=== PATIENT | male | born 1975 ===

== ENCOUNTER 2017-12-15 17:43 | Observation (INO) | payer MEDICAID ==
[2017-12-15] MEDS ORDERED: Sodium Chloride 0.9% 1,000 ML IV STA (19:51)
[2017-12-15] MEDS ORDERED: Morphine 4 MG/ML VIAL IVP ONE (20:03)
--- NOTE | 2017-12-15 20:32 | ED PDOC ---
HPI: Abdomen Time Seen by Provider: 12/15/17 19:50 Chief Complaint (Nursing): Abdominal Pain Chief Complaint (Provider): Nausea, Vomiting, Diarrhea History Per: Patient History/Exam Limitations: no limitations Onset/Duration Of Symptoms: Other (x 1 month) Current Symptoms Are (Timing): Still Present Associated Symptoms: Nausea, Vomiting, Diarrhea Additional History Per: Prior Records Additional Complaint(s): Mr. Mccormick is a 42 year old, male with a history of colon cancer and chemotherapy, who presents to the emergency department complaining of worsening abdominal pain associated with nausea, vomiting and diarrhea for 1 month. Patient states he has not followed up with his PCP in the past month. Patient reports poor appetite and 30 lb weight loss. [facility] worked up with CT and labs on October 01, 2017. Patient was advised to stay for admission, but signed out as against medical advice. Patient did, however, followed up with Dr. Casas and is scheduled for colonscopy and endoscopy. Reports persistently PO intolerant. Reports multiple episodes of non-bilious, non- bloody vomiting and 3-4 episodes of bloody diarrhea. PMD: Jazzy Melissa GI: Dr. Casas Past Medical History Reviewed: Historical Data, Nursing Documentation, Vital Signs Vital Signs: Last Vital Signs Temp 98.3 F 12/15/17 19:26 Pulse 78 12/15/17 19:26 Resp 16 12/15/17 19:26 BP 147/83 12/15/17 19:26 Pulse Ox 100 12/15/17 23:36 - Medical History PMH: Malignancy (colon in remission since surgery 3 yrs ago ) - Surgical History Surgical History: Appendectomy Other surgeries: Colon Surgery - Family History Family History: States: Unknown Family Hx - Immunization History Hx Tetanus Toxoid Vaccination: (unk) Hx Influenza Vaccination: No Hx Pneumococcal Vaccination: (unk) - Home Medications Home Medications: Ambulatory Orders Medication Instructions Recorded Ibuprofen [Advil] 2 tab PO PRN PRN 11/04/16 Famotidine [Pepcid] 20 mg PO BID #20 tab 10/01/17 Ondansetron ODT [Zofran ODT] 4 mg PO Q6H PRN 10 Days #10 odt 10/01/17 - Allergies Allergies/Adverse Reactions: Allergies Allergy/AdvReac Type Severity Reaction Status Date / Time No Known Allergies Allergy Verified 10/01/17 16:51 Review of Systems ROS Statement: Except As Marked, All Systems Reviewed And Found Negative Gastrointestinal: Positive for: Nausea, Vomiting (non-bilious, non-bloody), Abdominal Pain, Diarrhea (bloody) Physical Exam - Reviewed Nursing Documentation Reviewed: Yes Vital Signs Reviewed: Yes - Physical Exam Appears: Positive for: Uncomfortable Head Exam: Positive for: ATRAUMATIC, NORMAL INSPECTION, NORMOCEPHALIC Skin: Positive for: Normal Color, Warm, Dry Eye Exam: Positive for: Normal appearance ENT: Positive for: Other (tacky mucous membrane) Neck: Positive for: Normal Cardiovascular/Chest: Positive for: Regular Rate, Rhythm Respiratory: Positive for: Normal Breath Sounds. Negative for: Respiratory Distress Gastrointestinal/Abdominal: Positive for: Tenderness (Generalized abdominal tenderness pronouncely to epigastric and RUQ) Back: Positive for: Normal Inspection Extremity: Positive for: Normal ROM. Negative for: Deformity Neurologic/Psych: Positive for: Alert, Oriented - Laboratory Results Result Diagrams: 12/15/17 20:41 12/15/17 20:41 - ECG O2 Sat by Pulse Oximetry: 100 (RA) Pulse Ox Interpretation: Normal Medical Decision Making Medical Decision Making: Time: 19:51 Plan: - CMP - Lipase - ED Urine Dipstick - CBC - Bentyl 20 mg PO STAT - Morphine 4 mg IVP - Sodium Chloride 0.9% 1,000 ml IV 1,000 mls/hr - Zofran Inj Plan: - RUQ Ultrasound Time: 20:[address] Casas. Advised to admit patient under Dr. Velasquez ( Hospitalist) and Dr. Casas as consult for intractable abdominal pain, cachexia and colon cancer. Intends to do colonoscopy. [id number] US ABD FINDINGS Liver: There is a simple hepatic cyst in the left lobe measuring 2.0 x 1.7 x 2.8 cm. No intrahepatic bile duct dilation. Gallbladder: Unremarkable. No gallstones. Normal gallbladder wall measuring 2 mm. Negative Higgins's sign. Common bile duct: Unremarkable as visualized measuring 4 mm. No stones. No dilation. Pancreas: Unremarkable as visualized. The tail is not well-visualized. Right kidney: Unremarkable measuring 9.4 cm. No stones. No solid mass. No hydronephrosis. The aorta is normal. The IVC is normal. IMPRESSION: No acute findings. Liver cyst. No followup. Scribe Attestation: Documented by Leon Perez, acting as a scribe for Terry Jha Provider Scribe Attestation: All medical record entries made by the Scribe were at my direction and personally dictated by me. I have reviewed the chart and agree that the record accurately reflects my personal performance of the history, physical exam, medical decision making, and the department course for this patient. I have also personally directed, reviewed, and agree with the discharge instructions and disposition. Disposition - Clinical Impression Clinical Impression: Intractable abdominal pain, Cachexia, Colon cancer - Patient ED Disposition Is Patient to be Admitted: Yes Discussed With DrDaly: Hubert Casas (Dr Velasquez) - Disposition Disposition Time: 21:00 Condition: FAIR
[2017-12-15] MEDS ORDERED: Morphine 4 MG/ML VIAL ONE ×2 (20:38→23:20)
[2017-12-15 20:53] LABS: BASO % 0.5 % (0.0-2.0); EOS # 0.1 K/uL (0.0-0.7); EOS % 0.8 % (0.0-4.0); LYMPH # 3.4 K/uL (1.0-4.3); LYMPH % 37.1 % (20.0-40.0); MEAN CELL VOLUME 93.6 fl (80.0-94.0); MEAN CORPUSCULAR HEMOGLOBIN 32.3 pg (27.0-31.0); MEAN CORPUSCULAR HGB CONC 34.5 g/dL (33.0-37.0); MEAN PLATELET VOLUME 8.8 fl (7.2-11.7); MONO % 11.1 % (0.0-10.0); NEUT # 4.6 K/uL (1.8-7.0); NEUT % 50.5 % (50.0-75.0); NRBC % 0.2 % (0.0-0.0); RBC 4.03 Mil/uL (4.40-5.90); RED CELL DISTRIBUTION WIDTH 13.9 % (11.5-14.5); WHITE BLOOD COUNT 9.2 K/uL (4.8-10.8)
[2017-12-15 21:19] LABS: ALB/GLOB RATIO 1.2 (1.0-2.1); ALBUMIN 3.5 g/dL (3.5-5.0); ALT/SGPT 66 U/L (21-72); AST/SGOT 63 U/L (17-59); BLOOD UREA NITROGEN 24 mg/dl (9-20); CALCIUM 8.4 mg/dL (8.4-10.2); GFR AFRICAN-AMERICAN > 60; GFR NON-AFRICAN AMERICAN > 60
[2017-12-15 21:26] LABS: LIPASE 351 U/L (23-300)
--- NOTE | 2017-12-15 22:53 | US ---
EXAM: US Abdomen Limited, Right Upper Quadrant CLINICAL HISTORY: 42 years old, male; Pain; Abdominal pain; Epigastric; Additional info: Abd pain TECHNIQUE: Real-time ultrasound of the right upper quadrant with image documentation. COMPARISON: No relevant prior studies available. FINDINGS: Liver: There is a simple hepatic cyst in the left lobe measuring 2.0 x 1.7 x 2.8 cm. No intrahepatic bile duct dilation. Gallbladder: Unremarkable. No gallstones. Normal gallbladder wall measuring 2 mm. Negative Higgins's sign. Common bile duct: Unremarkable as visualized measuring 4 mm. No stones. No dilation. Pancreas: Unremarkable as visualized. The tail is not well-visualized. Right kidney: Unremarkable measuring 9.4 cm. No stones. No solid mass. No hydronephrosis. The aorta is normal. The IVC is normal. IMPRESSION: No acute findings. Liver cyst. No followup.
[2017-12-16] MEDS ORDERED: HYDROmorphone 0.5 mg/0.5 ml ISec IVP PRN (08:00)
[2017-12-16] MEDS ORDERED: Iohexol 240 (50 ml) PO ONE (09:59)
[2017-12-16] MEDS: Lactated Ringer's 1,000 ML IV SCH ×2 (10:00→20:52)
--- NOTE | 2017-12-16 12:13 | CP.PCM.HP ---
<ScoutScott - Last Filed: 12/16/17 13:48> History of Present Illness - History of Present Illness History of Present Illness: 42 y/o M with PMHx of Colon ca 5 years ago S/p partial resection and Chemo presented to ED c/o RLQ pain, weakness, hematochezia and wt loss for the past month. States that he recently visited Dr Casas(GI) about a week ago for F/ u. Patient states hematochezia is moderate, denies melena, fever, vomiting, nausea, anorexia, diarrhea. Pain is intermittent and localized to RLQ. Present on Admission - Present on Admission Any Indicators Present on Admission: No Review of Systems - Review of Systems All systems: reviewed and no additional remarkable complaints except - Constitutional Constitutional: Weakness - Gastrointestinal Gastrointestinal: Abdominal Pain, Hematochezia Past Patient History - Past Medical History & Family History Past Medical History?: No - Past Social History Smoking Status: Current Some Days Smoker - CARDIAC Hx Cardiac Disorders: No - PULMONARY Hx Respiratory Disorders: No - NEUROLOGICAL Hx Neurological Disorder: No - RENAL Hx Chronic Kidney Disease: No - ENDOCRINE/METABOLIC Hx Endocrine Disorders: No - HEMATOLOGICAL/ONCOLOGICAL Hx Blood Disorders: Yes Hx Cancer: Yes (Colon) Hx Chemotherapy: Yes - INTEGUMENTARY Hx Dermatological Problems: No - MUSCULOSKELETAL/RHEUMATOLOGICAL Hx Falls: No - GASTROINTESTINAL Hx Gastrointestinal Disorders: Yes Hx Bowel Surgery: Yes Other/Comment: colon surgery - GENITOURINARY/GYNECOLOGICAL Other/Comment: colon ca-3 yrs ago - PSYCHIATRIC Hx Substance Use: Yes Other/Comment: marijuana - SURGICAL HISTORY Hx Surgeries: Yes Hx Appendectomy: Yes Other/Comment: Hemicolectomy/Colon Ca - ANESTHESIA Hx Anesthesia: Yes Hx Anesthesia Reactions: No Has any member of the family had a problem w/ anesthesia?: No Meds Allergies/Adverse Reactions: Allergies Allergy/AdvReac Type Severity Reaction Status Date / Time No Known Allergies Allergy Verified 10/01/17 16:51 Physical Exam - Constitutional Appears: Non-toxic - Head Exam Head Exam: NORMAL INSPECTION - Eye Exam Eye Exam: EOMI, PERRL - ENT Exam ENT Exam: Mucous Membranes Moist - Respiratory Exam Respiratory Exam: Clear to Auscultation Bilateral, NORMAL BREATHING PATTERN. absent: Decreased Breath Sounds - Cardiovascular Exam Cardiovascular Exam: REGULAR RHYTHM, +S1, +S2. absent: Gallop - GI/Abdominal Exam GI & Abdominal Exam: Normal Bowel Sounds, Soft, Tenderness (RLQ). absent: Distended, Guarding, Rebound - Extremities Exam Extremities exam: Positive for: full ROM. Negative for: calf tenderness - Neurological Exam Neurological exam: Alert, Normal Gait, Oriented x3 - Skin Skin Exam: Normal Color, Warm Results - Vital Signs Recent Vital Signs: Last Vital Signs Temp 97.6 F 12/16/17 08:40 Pulse 87 12/16/17 08:40 Resp 20 12/16/17 08:40 BP 121/70 12/16/17 08:40 Pulse Ox 99 12/16/17 08:40 - Labs Result Diagrams: 12/15/17 20:41 12/15/17 20:41 Labs: Laboratory Results - last 24 hr 12/15/17 12/15/17 12/16/17 20:41 20:41 10:57 WBC 9.2 RBC 4.03 L Hgb 13.0 Hct 37.7 MCV 93.6 MCH 32.3 H MCHC 34.5 RDW 13.9 Plt Count 178 MPV 8.8 Neut % (Auto) 50.5 Lymph % (Auto) 37.1 [place] % (Auto) 11.1 H Eos % (Auto) 0.8 Baso % (Auto) 0.5 Neut # (Auto) 4.6 Lymph # (Auto) 3.4 [place] # (Auto) 1.0 H Eos # (Auto) 0.1 Baso # (Auto) 0.0 Sodium 139 Potassium 3.5 L Chloride 104 Carbon Dioxide 23 Anion Gap 16 BUN 24 H Creatinine 0.8 Est GFR ( Amer) > 60 Est GFR (Non-Af Amer) > 60 Random Glucose 79 Calcium 8.4 Total Bilirubin 0.4 AST 63 H ALT 66 Alkaline Phosphatase 60 Total Protein 6.4 Albumin 3.5 Globulin 2.9 Albumin/Globulin Ratio 1.2 Lipase 351 H Carcinoembryonic Ag 1.1 Assessment & Plan - Assessment and Plan (Free Text) Assessment: 42 y/o with Hx of colon ca admitted for abd pain Abd pain Acute Unknown Hx of colon ca wt loss and hematochezia for 1 month abd US at ED unremarkable GI consult appreciated CT abd and pelvis ordered F/U CEA and AFP. NPO for now <Rome Velasquez - Last Filed: 12/19/17 11:57> Results - Vital Signs Recent Vital Signs: Last Vital Signs Temp 98.9 F 12/19/17 09:53 Pulse 87 12/19/17 09:53 Resp 20 12/19/17 09:53 BP 117/81 12/19/17 09:53 Pulse Ox 98 12/19/17 09:53 - Labs Result Diagrams: 12/17/17 05:00 12/17/17 05:00 Assessment & Plan (1) Intractable abdominal pain Status: Acute (2) Cachexia Status: Acute (3) Gastritis Status: Acute (4) History of colon cancer Status: Acute - Assessment and Plan (Free Text) Plan: I was present during evaluation and discussed with DR Butterfield re plans of care and mgt. Rome Velasquez M.D.
[2017-12-16] MEDS ORDERED: Iohexol 300 100 ML IJ ONE (13:33)
[2017-12-16] MEDS ORDERED: Sodium Chloride 0.9% 100 ML ONE (13:33)
--- NOTE | 2017-12-16 14:14 | CT ---
PROCEDURE: CT Abdomen and Pelvis with contrast HISTORY: Intractable abdominal pain COMPARISON: CT scan of the abdomen pelvis dated 12/05/2008. TECHNIQUE: Contrast dose: 95 mL Omnipaque 300 Radiation dose: Total exam DLP = 269.9 mGy-cm. This CT exam was performed using one or more of the following dose reduction techniques: Automated exposure control, adjustment of the mA and/or kV according to patient size, and/or use of iterative reconstruction technique. FINDINGS: LOWER THORAX: Unremarkable. LIVER: Mild hepatic steatosis. Multiple hepatic cysts, the largest is bilobed in the inferior left hepatic lobe and spans 3.5 x 2.8 cm. These have increased in size. Additional too small to characterize hypoattenuating foci in both hepatic lobes. For example, 4-5 mm hypoattenuating structure in the left hepatic lobe (series 3, image 35); adjacent 4 mm and 8 mm hypoattenuating structures in the subcapsular left hepatic lobe (series 3, image 40); 4 mm hypoattenuating structure in the right hepatic lobe (series 3, image 37); 6 mm hypoattenuating structure in the inferior right hepatic lobe (series 3, image 55). GALLBLADDER AND BILE DUCTS: Unremarkable. PANCREAS: Unremarkable. No gross lesion or ductal dilatation. SPLEEN: Unremarkable. ADRENALS: Unremarkable. No mass. KIDNEYS AND URETERS: Unremarkable. No hydronephrosis. No solid mass. VASCULATURE: Unremarkable. No aortic aneurysm. BOWEL: Prior low anterior resection. No obstruction. No gross mural thickening. APPENDIX: Prior appendectomy. PERITONEUM: Small fat containing supraumbilical ventral abdominal wall hernias. No free fluid. No free air. LYMPH NODES: Unremarkable. No enlarged lymph nodes. BLADDER: Unremarkable. REPRODUCTIVE: Unremarkable. BONES: No acute fracture. OTHER FINDINGS: None. IMPRESSION: Interval enlargement of hepatic cysts. Additional too small to characterize hypoattenuating foci in the liver as described above. Additional findings as above.
[2017-12-16] MEDS ORDERED: Peg-Electrolyte Oral Soln 4L (Golytely) PO ONE ×2 (16:13→17:03)
--- NOTE | 2017-12-16 23:23 | CP.PCM.CON ---
History of Present Illness - History of Present Illness History of Present Illness: 42 yo male with h/o colon ca about 5 years ago and s/p resection and chemo, coming for rectal bleeding and weight loo for about one month. Had CEA level done as outpatient and the level was low. Review of Systems - Constitutional Constitutional: absent: Chills - EENT Eyes: absent: Blurred Vision Ears: absent: Ear Discharge Nose/Mouth/Throat: absent: Nasal Congestion - Cardiovascular Cardiovascular: absent: Chest Pain - Respiratory Respiratory: absent: Dyspnea - Gastrointestinal Gastrointestinal: As Per HPI Past Patient History - Past Medical History & Family History Past Medical History?: No - Past Social History Smoking Status: Current Some Days Smoker - CARDIAC Hx Cardiac Disorders: No - PULMONARY Hx Respiratory Disorders: No - NEUROLOGICAL Hx Neurological Disorder: No - RENAL Hx Chronic Kidney Disease: No - ENDOCRINE/METABOLIC Hx Endocrine Disorders: No - HEMATOLOGICAL/ONCOLOGICAL Hx Blood Disorders: Yes Hx Cancer: Yes (Colon) Hx Chemotherapy: Yes - INTEGUMENTARY Hx Dermatological Problems: No - MUSCULOSKELETAL/RHEUMATOLOGICAL Hx Falls: No - GASTROINTESTINAL Hx Gastrointestinal Disorders: Yes Hx Bowel Surgery: Yes Other/Comment: colon surgery - GENITOURINARY/GYNECOLOGICAL Other/Comment: colon ca-3 yrs ago - PSYCHIATRIC Hx Substance Use: Yes Other/Comment: marijuana - SURGICAL HISTORY Hx Surgeries: Yes Hx Appendectomy: Yes Other/Comment: Hemicolectomy/Colon Ca - ANESTHESIA Hx Anesthesia: Yes Hx Anesthesia Reactions: No Has any member of the family had a problem w/ anesthesia?: No Meds Allergies/Adverse Reactions: Allergies Allergy/AdvReac Type Severity Reaction Status Date / Time No Known Allergies Allergy Verified 10/01/17 16:51 - Medications Medications: Current Medications Dicyclomine HCl (Bentyl) 10 mg PO TID [facility] Last Admin: 12/16/17 18:37 Dose: 10 mg Enoxaparin Sodium (Lovenox) 40 mg SC DAILY [facility] PRN Reason: Protocol Hydromorphone HCl (Dilaudid) 1 mg IVP Q3 PRN PRN Reason: Pain, moderate (4-7) Last Admin: 12/16/17 20:48 Dose: 1 mg Lactated Ringer's (Lactated Ringer's) 1,000 mls @ 100 mls/hr IV .Q10H [facility] Last Admin: 12/16/17 20:52 Dose: 100 mls/hr Ondansetron HCl (Zofran Inj) 12 mg IVP Q6 PRN PRN Reason: Nausea/Vomiting Last Admin: 12/16/17 15:55 Dose: 12 mg Pantoprazole Sodium (Protonix Inj) 40 mg IVP DAILY [facility] Last Admin: 12/16/17 02:59 Dose: 40 mg Physical Exam - Constitutional Appears: No Acute Distress - Head Exam Head Exam: ATRAUMATIC - Eye Exam Eye Exam: Normal appearance Pupil Exam: PERRL - ENT Exam ENT Exam: Mucous Membranes Moist - Neck Exam Neck exam: Positive for: Normal Inspection - Respiratory Exam Respiratory Exam: Clear to Auscultation Bilateral - Cardiovascular Exam Cardiovascular Exam: REGULAR RHYTHM, +S1 - GI/Abdominal Exam GI & Abdominal Exam: Distended, Soft Results - Vital Signs Recent Vital Signs: Last Vital Signs Temp 98.3 F 12/16/17 16:32 Pulse 63 12/16/17 16:32 Resp 19 12/16/17 16:32 BP 151/98 H 12/16/17 16:32 Pulse Ox 96 12/16/17 16:32 - Labs Result Diagrams: 12/15/17 20:41 12/15/17 20:41 Labs: Laboratory Results - last 24 hr 12/16/17 12/16/17 10:57 10:57 Alpha Fetoprotein 2.5 Carcinoembryonic Ag 1.1 - Imaging and Cardiology US - abdomen Status: Report reviewed by me CT scan - abdomen Status: Report reviewed by me Assessment & Plan (1) Cachexia Assessment and Plan: Cachexia, abdominal pain and rectal bleeding in individual with h/o colon cancer. CT, sono, and CEA essentially negative. Colonoscopy Wednesday to r/o colitis or cancer Status: Acute
[2017-12-17] MEDS: Lactated Ringer's 1,000 ML IV SCH ×2 (06:00→20:40)
[2017-12-17 06:45] LABS: BASO % 0.5 % (0.0-2.0); EOS # 0.1 K/uL (0.0-0.7); EOS % 1.9 % (0.0-4.0); HEMOGLOBIN 13.1 g/dL (12.0-18.0); LYMPH # 2.2 K/uL (1.0-4.3); LYMPH % 37.3 % (20.0-40.0); MEAN CELL VOLUME 94.3 fl (80.0-94.0); MEAN CORPUSCULAR HEMOGLOBIN 32.9 pg (27.0-31.0); MEAN CORPUSCULAR HGB CONC 34.8 g/dL (33.0-37.0); MEAN PLATELET VOLUME 8.8 fl (7.2-11.7); MONO # 0.7 K/uL (0.0-0.8); MONO % 12.3 % (0.0-10.0); NEUT # 2.9 K/uL (1.8-7.0); NRBC % 0.1 % (0.0-0.0); RBC 3.99 Mil/uL (4.40-5.90); RED CELL DISTRIBUTION WIDTH 14.2 % (11.5-14.5)
[2017-12-17 06:57] LABS: ALB/GLOB RATIO 1.1 (1.0-2.1); ALBUMIN 3.3 g/dL (3.5-5.0); ALT/SGPT 56 U/L (21-72); AST/SGOT 51 U/L (17-59); BLOOD UREA NITROGEN 12 mg/dl (9-20); CALCIUM 8.9 mg/dL (8.4-10.2); GFR AFRICAN-AMERICAN > 60; GFR NON-AFRICAN AMERICAN > 60
[2017-12-17 07:16] LABS: PROTHROMBIN TIME 10.5 Seconds (9.8-13.1)
[2017-12-17 07:17] LABS: PARTIAL THROMBOPLASTIN TIME 25.7 Seconds (25.6-37.1)
--- NOTE | 2017-12-17 10:30 | CP.PCM.CON ---
History of Present Illness - History of Present Illness History of Present Illness: General Surgery Consult Note - Dr. House 42M seen and examined at bedside by Dr. House and surgery team after consultation for intermittent RLQ abdominal pain with N/V x 1 month. Pt states the pain comes and goes and is very tender to touch. He states it began in the right lower abdomen and now feels it radiating around to his back. Admits to bright red blood in his stools and intermittent diarrhea. Denies melena. Admits to intermittent episodes of nausea and non-bloody vomiting. Denies loss of appetite but is hesitant to eat or drink much due to N/V. Admits to taking Motrin as needed for pain but does not take it daily. States he has been unable to work for the last 2 weeks as pain, N/V are becoming more constant. PMHx: colon CA, GERD Meds: Omeprazole PSHx: left fawad-colectomy (2011), appendectomy (2002) All: NKDA Soc: social EtOH (1 beer/week); 5-6 cigs/day; denies drug use FamHx: hx of CA in family Review of Systems - Review of Systems All systems: reviewed and no additional remarkable complaints except (per HPI) Past Patient History - Past Medical History & Family History Past Medical History?: No - Past Social History Smoking Status: Current Some Days Smoker - CARDIAC Hx Cardiac Disorders: No - PULMONARY Hx Respiratory Disorders: No - NEUROLOGICAL Hx Neurological Disorder: No - RENAL Hx Chronic Kidney Disease: No - ENDOCRINE/METABOLIC Hx Endocrine Disorders: No - HEMATOLOGICAL/ONCOLOGICAL Hx Blood Disorders: Yes Hx Cancer: Yes (Colon) Hx Chemotherapy: Yes - INTEGUMENTARY Hx Dermatological Problems: No - MUSCULOSKELETAL/RHEUMATOLOGICAL Hx Falls: No - GASTROINTESTINAL Hx Gastrointestinal Disorders: Yes Hx Bowel Surgery: Yes Other/Comment: colon surgery - GENITOURINARY/GYNECOLOGICAL Other/Comment: colon ca-3 yrs ago - PSYCHIATRIC Hx Substance Use: Yes Other/Comment: marijuana - SURGICAL HISTORY Hx Surgeries: Yes Hx Appendectomy: Yes Other/Comment: Hemicolectomy/Colon Ca - ANESTHESIA Hx Anesthesia: Yes Hx Anesthesia Reactions: No Has any member of the family had a problem w/ anesthesia?: No Meds Allergies/Adverse Reactions: Allergies Allergy/AdvReac Type Severity Reaction Status Date / Time No Known Allergies Allergy Verified 10/01/17 16:51 - Medications Medications: Current Medications Dicyclomine HCl (Bentyl) 10 mg PO TID [facility] Last Admin: 12/17/17 08:24 Dose: Not Given Enoxaparin Sodium (Lovenox) 40 mg SC DAILY [facility] PRN Reason: Protocol Hydromorphone HCl (Dilaudid) 1 mg IVP Q3 PRN PRN Reason: Pain, moderate (4-7) Last Admin: 12/17/17 08:20 Dose: 1 mg Lactated Ringer's (Lactated Ringer's) 1,000 mls @ 100 mls/hr IV .Q10H [facility] Last Admin: 12/17/17 06:00 Dose: Not Given Ondansetron HCl (Zofran Inj) 12 mg IVP Q6 PRN PRN Reason: Nausea/Vomiting Last Admin: 12/16/17 15:55 Dose: 12 mg Pantoprazole Sodium (Protonix Inj) 40 mg IVP DAILY [facility] Last Admin: 12/17/17 08:26 Dose: 40 mg Physical Exam - Constitutional Appears: Well, Non-toxic, No Acute Distress - Head Exam Head Exam: ATRAUMATIC, NORMAL INSPECTION - Eye Exam Eye Exam: Normal appearance - Respiratory Exam Respiratory Exam: NORMAL BREATHING PATTERN. absent: Respiratory Distress - GI/Abdominal Exam GI & Abdominal Exam: Tenderness. absent: Distended, Mass, Rebound Additional comments: mild-moderate RLQ tenderness to palpation - Extremities Exam Extremities exam: Positive for: normal inspection. Negative for: pedal edema - Neurological Exam Neurological exam: Alert, Oriented x3 - Psychiatric Exam Psychiatric exam: Normal Affect, Normal Mood - Skin Skin Exam: Dry, Intact, Normal Color Results - Vital Signs Recent Vital Signs: Last Vital Signs Temp 98.4 F 12/17/17 08:05 Pulse 65 12/17/17 08:05 Resp 18 12/17/17 08:05 BP 135/84 12/17/17 08:05 Pulse Ox 99 12/17/17 08:05 - Labs Result Diagrams: 12/17/17 05:00 12/17/17 05:00 Labs: Laboratory Results - last 24 hr 12/16/17 12/16/17 12/17/17 10:57 10:57 05:00 WBC 6.0 RBC 3.99 L Hgb 13.1 Hct 37.7 MCV 94.3 H MCH 32.9 H MCHC 34.8 RDW 14.2 Plt Count 179 MPV 8.8 Neut % (Auto) 48.0 L Lymph % (Auto) 37.3 [place] % (Auto) 12.3 H Eos % (Auto) 1.9 Baso % (Auto) 0.5 Neut # (Auto) 2.9 Lymph # (Auto) 2.2 [place] # (Auto) 0.7 Eos # (Auto) 0.1 Baso # (Auto) 0.0 PT INR APTT Sodium Potassium Chloride Carbon Dioxide Anion Gap BUN Creatinine Est GFR ( Amer) Est GFR (Non-Af Amer) Random Glucose Calcium Total Bilirubin AST ALT Alkaline Phosphatase Total Protein Albumin Globulin Albumin/Globulin Ratio Alpha Fetoprotein 2.5 Carcinoembryonic Ag 1.1 12/17/17 12/17/17 05:00 05:30 WBC RBC Hgb Hct MCV MCH MCHC RDW Plt Count MPV Neut % (Auto) Lymph % (Auto) [place] % (Auto) Eos % (Auto) Baso % (Auto) Neut # (Auto) Lymph # (Auto) [place] # (Auto) Eos # (Auto) Baso # (Auto) PT 10.5 INR 1.0 APTT 25.7 Sodium 142 Potassium 4.3 Chloride 102 Carbon Dioxide 31 H Anion Gap 13 BUN 12 Creatinine 1.0 Est GFR ( Amer) > 60 Est GFR (Non-Af Amer) > 60 Random Glucose 89 Calcium 8.9 Total Bilirubin 0.9 AST 51 ALT 56 Alkaline Phosphatase 66 Total Protein 6.3 Albumin 3.3 L Globulin 3.0 Albumin/Globulin Ratio 1.1 Alpha Fetoprotein Carcinoembryonic Ag Assessment & Plan - Assessment and Plan (Free Text) Assessment: 42 y/o male with RLQ abdominal pain Plan: -seen at bedside with attending Dr. House -continue pain mgt per primary team -f/u colonoscopy -monitor CBC, vitals
[2017-12-17] MEDS ORDERED: Lactated Ringer's 1,000 ML IV ONE (13:11)
[2017-12-17] MEDS ORDERED: Midazolam 2 MG/2 ML VIAL ONE (13:38)
[2017-12-17] MEDS ORDERED: Propofol 10 mg/ml Inj (20 ML) ONE (13:39)
[2017-12-17] MEDS ORDERED: Lidocaine PF 2% (5 ml) Inj (For Cardiac Arrhy) IV ONE (13:39)
--- NOTE | 2017-12-17 16:15 | CP.PCM.PN ---
Subjective - Date & Time of Evaluation Date of Evaluation: 12/17/17 Time of Evaluation: 16:13 - Subjective Subjective: Was c/o ongoing rectal bleeding through this morning, but no blood or significant pathology on colonscopy. Objective - Vital Signs/Intake and Output Vital Signs (last 24 hours): Temp Pulse Resp BP Pulse Ox 96.6 F L 71 10 L 102/62 100 12/17/17 14:00 12/17/17 14:14 12/17/17 14:14 12/17/17 14:14 12/17/17 14:14 Intake and Output: 12/17/17 12/17/17 06:59 18:59 Intake Total 250 Balance 250 - Medications Medications: Current Medications Dicyclomine HCl (Bentyl) 10 mg PO TID [facility] Last Admin: 12/17/17 12:49 Dose: Not Given Enoxaparin Sodium (Lovenox) 40 mg SC DAILY [facility] PRN Reason: Protocol Hydromorphone HCl (Dilaudid) 1 mg IVP Q3 PRN PRN Reason: Pain, moderate (4-7) Last Admin: 12/17/17 15:26 Dose: 1 mg Lactated Ringer's (Lactated Ringer's) 1,000 mls @ 100 mls/hr IV .Q10H [facility] Last Admin: 12/17/17 06:00 Dose: Not Given Ondansetron HCl (Zofran Inj) 12 mg IVP Q6 PRN PRN Reason: Nausea/Vomiting Last Admin: 12/17/17 15:28 Dose: 12 mg Pantoprazole Sodium (Protonix Inj) 40 mg IVP DAILY [facility] Last Admin: 12/17/17 08:26 Dose: 40 mg - Labs Labs: 12/17/17 05:00 12/17/17 05:00 PT 10.5 Seconds (9.8-13.1) 12/17/17 05:30 INR 1.0 (0.9-1.2) 12/17/17 05:30 APTT 25.7 Seconds (25.6-37.1) 12/17/17 05:30 - Head Exam Head Exam: ATRAUMATIC - Eye Exam Eye Exam: Normal appearance - ENT Exam ENT Exam: Normal Exam - Neck Exam Neck Exam: Full ROM - Respiratory Exam Respiratory Exam: Clear to Ausculation Bilateral - Cardiovascular Exam Cardiovascular Exam: REGULAR RHYTHM - GI/Abdominal Exam GI & Abdominal Exam: Soft, Normal Bowel Sounds Assessment and Plan (1) Cachexia Assessment & Plan: Colonscopy essentially negative. Consider mental health assessment. Diet advanced. Status: Acute
[2017-12-17] MEDS: Enoxaparin 40 mg Syringe SC SCH (17:26)
[2017-12-18] MEDS: Lactated Ringer's 1,000 ML IV SCH ×3 (02:10→22:00)
--- NOTE | 2017-12-18 07:43 | CP.PCM.PN ---
Subjective - Date & Time of Evaluation Date of Evaluation: 12/18/17 Time of Evaluation: 07:40 - Subjective Subjective: General Surgery: Dr House Pt S&E. States he is "not doing well". Complains of continued lower GI bleeding, however HgB stable and colonoscopy negative. States he cannot tolerate food. Complains of pain in abdomen, flanks, lower back, and into his legs. Pt states he is going for "more testing today" but he is not sure for what. Explained to pt surgically we have nothing to offer at this time as we are unclear on nature of his pain, but we will continue to follow. Objective - Vital Signs/Intake and Output Vital Signs (last 24 hours): Temp Pulse Resp BP Pulse Ox 98.4 F 83 18 147/97 H 99 12/18/17 00:00 12/18/17 00:00 12/18/17 00:00 12/18/17 00:00 12/18/17 00:00 - Medications Medications: Current Medications Dicyclomine HCl (Bentyl) 10 mg PO TID [facility] Last Admin: 12/17/17 20:24 Dose: 10 mg Enoxaparin Sodium (Lovenox) 40 mg SC DAILY [facility] PRN Reason: Protocol Last Admin: 12/17/17 17:26 Dose: 40 mg Hydromorphone HCl (Dilaudid) 1 mg IVP Q3 PRN PRN Reason: Pain, moderate (4-7) Last Admin: 12/18/17 00:10 Dose: 1 mg Lactated Ringer's (Lactated Ringer's) 1,000 mls @ 100 mls/hr IV .Q10H [facility] Last Admin: 12/18/17 02:10 Dose: Not Given Ondansetron HCl (Zofran Inj) 12 mg IVP Q6 PRN PRN Reason: Nausea/Vomiting Last Admin: 12/17/17 15:28 Dose: 12 mg Pantoprazole Sodium (Protonix Inj) 40 mg IVP DAILY [facility] Last Admin: 12/17/17 08:26 Dose: 40 mg - Labs Labs: 12/17/17 05:00 12/17/17 05:00 PT 10.5 Seconds (9.8-13.1) 12/17/17 05:30 INR 1.0 (0.9-1.2) 12/17/17 05:30 APTT 25.7 Seconds (25.6-37.1) 12/17/17 05:30 - Constitutional Appears: Non-toxic, No Acute Distress - Head Exam Head Exam: NORMAL INSPECTION - Respiratory Exam Respiratory Exam: absent: Accessory Muscle Use, Respiratory Distress - Cardiovascular Exam Cardiovascular Exam: REGULAR RHYTHM. absent: Tachycardia - GI/Abdominal Exam GI & Abdominal Exam: Soft, Tenderness (epigastric ). absent: Distended, Firm, Guarding, Rigid, Hernia, Mass, Rebound - Neurological Exam Neurological Exam: Alert, Awake, Oriented x3 - Psychiatric Exam Psychiatric exam: Normal Affect, Normal Mood - Skin Skin Exam: Normal Color, Warm Assessment and Plan - Assessment and Plan (Free Text) Assessment: 42M with undifferentiated abdominal pain, now with back pain as well, and reports of lower GI bleeding w/ negative colonoscopy Plan: agree with GI assessment no evidence of recurrence, obstruction, or metastasis on CT scan will f/u on additional studies ordered by primary will cont to follow d/w Dr Harsh Parra, PGY3
[2017-12-18] MEDS: Enoxaparin 40 mg Syringe SC SCH (09:07)
--- NOTE | 2017-12-18 16:04 | CP.PCM.PN ---
Subjective - Date & Time of Evaluation Date of Evaluation: 12/17/17 Time of Evaluation: 17:00 - Subjective Subjective: Patient is very anxious Noted no significant finding on colonoscopy. Still with vague tenderness on the right side of the abdomen. Has normal bm, Tolerates soft diet. Has no fever. Objective - Vital Signs/Intake and Output Vital Signs (last 24 hours): Temp Pulse Resp BP Pulse Ox 97.8 F 82 19 150/97 H 100 12/18/17 08:00 12/18/17 08:00 12/18/17 08:00 12/18/17 08:00 12/18/17 08:00 - Medications Medications: Current Medications Dicyclomine HCl (Bentyl) 10 mg PO TID [facility] Last Admin: 12/18/17 12:09 Dose: 10 mg Enoxaparin Sodium (Lovenox) 40 mg SC DAILY [facility] PRN Reason: Protocol Last Admin: 12/18/17 09:07 Dose: 40 mg Hydromorphone HCl (Dilaudid) 1 mg IVP Q3 PRN PRN Reason: Pain, moderate (4-7) Last Admin: 12/18/17 12:17 Dose: 1 mg Lactated Ringer's (Lactated Ringer's) 1,000 mls @ 100 mls/hr IV .Q10H [facility] Last Admin: 12/18/17 12:10 Dose: 100 mls/hr Ondansetron HCl (Zofran Inj) 12 mg IVP Q6 PRN PRN Reason: Nausea/Vomiting Last Admin: 12/17/17 15:28 Dose: 12 mg Pantoprazole Sodium (Protonix Ec Tab) 40 mg PO DAILY [facility] - Labs Labs: 12/17/17 05:00 12/17/17 05:00 PT 10.5 Seconds (9.8-13.1) 12/17/17 05:30 INR 1.0 (0.9-1.2) 12/17/17 05:30 APTT 25.7 Seconds (25.6-37.1) 12/17/17 05:30 - Head Exam Head Exam: NORMAL INSPECTION - Eye Exam Eye Exam: Normal appearance - ENT Exam ENT Exam: Mucous Membranes Moist - Respiratory Exam Respiratory Exam: Clear to Ausculation Bilateral - Cardiovascular Exam Cardiovascular Exam: REGULAR RHYTHM - GI/Abdominal Exam GI & Abdominal Exam: Tenderness, Normal Bowel Sounds Additional comments: slight tenderness on the right upper quadrant - Neurological Exam Neurological Exam: Awake, Oriented x3 Assessment and Plan (1) Cachexia Status: Acute (2) Intractable abdominal pain Status: Acute (3) Gastritis Status: Acute - Assessment and Plan (Free Text) Plan: Cont meds Cont tx advance diet pain meds antacid.
--- NOTE | 2017-12-18 16:05 | CP.PCM.PN ---
Subjective - Date & Time of Evaluation Date of Evaluation: 12/18/17 Time of Evaluation: 16:04 - Subjective Subjective: Patient was able to take his lunch today Still with minimal tenderness on the right lower quadrant area. Has no fever He was told about the findings on colonoscopy. Less anxious and depressed. Objective - Vital Signs/Intake and Output Vital Signs (last 24 hours): Temp Pulse Resp BP Pulse Ox 97.8 F 82 19 150/97 H 100 12/18/17 08:00 12/18/17 08:00 12/18/17 08:00 12/18/17 08:00 12/18/17 08:00 - Medications Medications: Current Medications Dicyclomine HCl (Bentyl) 10 mg PO TID [facility] Last Admin: 12/18/17 12:09 Dose: 10 mg Enoxaparin Sodium (Lovenox) 40 mg SC DAILY [facility] PRN Reason: Protocol Last Admin: 12/18/17 09:07 Dose: 40 mg Hydromorphone HCl (Dilaudid) 1 mg IVP Q3 PRN PRN Reason: Pain, moderate (4-7) Last Admin: 12/18/17 12:17 Dose: 1 mg Lactated Ringer's (Lactated Ringer's) 1,000 mls @ 100 mls/hr IV .Q10H [facility] Last Admin: 12/18/17 12:10 Dose: 100 mls/hr Ondansetron HCl (Zofran Inj) 12 mg IVP Q6 PRN PRN Reason: Nausea/Vomiting Last Admin: 12/17/17 15:28 Dose: 12 mg Pantoprazole Sodium (Protonix Ec Tab) 40 mg PO DAILY [facility] - Labs Labs: 12/17/17 05:00 12/17/17 05:00 PT 10.5 Seconds (9.8-13.1) 12/17/17 05:30 INR 1.0 (0.9-1.2) 12/17/17 05:30 APTT 25.7 Seconds (25.6-37.1) 12/17/17 05:30 - Head Exam Head Exam: NORMAL INSPECTION - Eye Exam Eye Exam: Normal appearance - ENT Exam ENT Exam: Mucous Membranes Moist - Respiratory Exam Respiratory Exam: Clear to Ausculation Bilateral - Cardiovascular Exam Cardiovascular Exam: REGULAR RHYTHM - GI/Abdominal Exam GI & Abdominal Exam: Soft, Tenderness - Neurological Exam Neurological Exam: Awake, CN II-XII Intact, Oriented x3 Assessment and Plan (1) Intractable abdominal pain Status: Acute (2) Cachexia Status: Acute (3) Gastritis Status: Acute (4) History of colon cancer Status: Acute - Assessment and Plan (Free Text) Plan: Cont meds Con ttx XCont diet pain meds DC plans for am.
[2017-12-18 23:44] VITALS: RESP 20
--- NOTE | 2017-12-19 00:01 | CP.PCM.PN ---
Subjective - Date & Time of Evaluation Date of Evaluation: 12/18/17 Time of Evaluation: 23:59 - Subjective Subjective: Patient tolerating diet. Objective - Vital Signs/Intake and Output Vital Signs (last 24 hours): Temp Pulse Resp BP Pulse Ox 97.9 F 74 20 149/94 H 100 12/18/17 23:44 12/18/17 23:44 12/18/17 23:44 12/18/17 23:44 12/18/17 23:44 - Medications Medications: Current Medications Dicyclomine HCl (Bentyl) 10 mg PO TID [facility] Last Admin: 12/18/17 16:24 Dose: 10 mg Enoxaparin Sodium (Lovenox) 40 mg SC DAILY [facility] PRN Reason: Protocol Last Admin: 12/18/17 09:07 Dose: 40 mg Hydromorphone HCl (Dilaudid) 1 mg IVP Q3 PRN PRN Reason: Pain, moderate (4-7) Last Admin: 12/18/17 23:44 Dose: 1 mg Lactated Ringer's (Lactated Ringer's) 1,000 mls @ 100 mls/hr IV .Q10H [facility] Last Admin: 12/18/17 12:10 Dose: 100 mls/hr Ondansetron HCl (Zofran Inj) 12 mg IVP Q6 PRN PRN Reason: Nausea/Vomiting Last Admin: 12/17/17 15:28 Dose: 12 mg Pantoprazole Sodium (Protonix Ec Tab) 40 mg PO DAILY [facility] - Labs Labs: 12/17/17 05:00 12/17/17 05:00 PT 10.5 Seconds (9.8-13.1) 12/17/17 05:30 INR 1.0 (0.9-1.2) 12/17/17 05:30 APTT 25.7 Seconds (25.6-37.1) 12/17/17 05:30 - Head Exam Head Exam: ATRAUMATIC - Eye Exam Eye Exam: Normal appearance Pupil Exam: PERRL - ENT Exam ENT Exam: Mucous Membranes Moist - Neck Exam Neck Exam: Full ROM - Respiratory Exam Respiratory Exam: Clear to Ausculation Bilateral - Cardiovascular Exam Cardiovascular Exam: REGULAR RHYTHM - GI/Abdominal Exam GI & Abdominal Exam: Soft, Normal Bowel Sounds. absent: Tenderness Assessment and Plan (1) Cachexia Assessment & Plan: Patient reassured that no blood was seen during colonoscopy and that there is no sign of cancer based on CT scan and CEA levels. Encourage oral intake of calorie rich diet. Status: Acute
[2017-12-19] MEDS: Lactated Ringer's 1,000 ML IV SCH (08:46)
[2017-12-19] MEDS: Enoxaparin 40 mg Syringe SC SCH (08:47)
[2017-12-19] MEDS ORDERED: Pantoprazole 40 mg EC Tab PO SCH (09:00)
--- NOTE | 2017-12-19 09:03 | CP.PCM.PN ---
Subjective - Date & Time of Evaluation Date of Evaluation: 12/19/17 Time of Evaluation: 05:50 - Subjective Subjective: General Surgery- Dr. House patient seen and examined at bedside this AM. no acute events overnight. tolerating current diet w/ no nausea, or vomiting. Denies f/c cp/sob of note: colonoscopy is negative- discussed w/ patient that no surgical options indicated at this time Objective - Vital Signs/Intake and Output Vital Signs (last 24 hours): Temp Pulse Resp BP Pulse Ox 97.9 F 74 20 149/94 H 100 12/18/17 23:44 12/18/17 23:44 12/18/17 23:44 12/18/17 23:44 12/18/17 23:44 - Medications Medications: Current Medications Dicyclomine HCl (Bentyl) 10 mg PO TID [facility] Last Admin: 12/19/17 08:47 Dose: 10 mg Enoxaparin Sodium (Lovenox) 40 mg SC DAILY [facility] PRN Reason: Protocol Last Admin: 12/19/17 08:47 Dose: 40 mg Hydromorphone HCl (Dilaudid) 1 mg IVP Q3 PRN PRN Reason: Pain, moderate (4-7) Last Admin: 12/19/17 08:52 Dose: 1 mg Lactated Ringer's (Lactated Ringer's) 1,000 mls @ 100 mls/hr IV .Q10H [facility] Last Admin: 12/19/17 08:46 Dose: Not Given Ondansetron HCl (Zofran Inj) 12 mg IVP Q6 PRN PRN Reason: Nausea/Vomiting Last Admin: 12/17/17 15:28 Dose: 12 mg Pantoprazole Sodium (Protonix Ec Tab) 40 mg PO DAILY [facility] Last Admin: 12/19/17 08:47 Dose: 40 mg - Labs Labs: 12/17/17 05:00 12/17/17 05:00 PT 10.5 Seconds (9.8-13.1) 12/17/17 05:30 INR 1.0 (0.9-1.2) 12/17/17 05:30 APTT 25.7 Seconds (25.6-37.1) 12/17/17 05:30 - Constitutional Appears: Non-toxic, No Acute Distress - Head Exam Head Exam: ATRAUMATIC - Eye Exam Eye Exam: EOMI - ENT Exam ENT Exam: Mucous Membranes Moist - Respiratory Exam Respiratory Exam: NORMAL BREATHING PATTERN. absent: Accessory Muscle Use, Respiratory Distress - Cardiovascular Exam Cardiovascular Exam: +S1, +S2. absent: Bradycardia, Tachycardia - GI/Abdominal Exam GI & Abdominal Exam: Soft. absent: Distended, Firm, Guarding, Rigid, Tenderness - Neurological Exam Neurological Exam: Alert, Awake, Oriented x3 - Psychiatric Exam Psychiatric exam: Normal Affect - Skin Skin Exam: Intact, Warm Assessment and Plan - Assessment and Plan (Free Text) Assessment: 42M with undifferentiated abdominal pain, now with back pain as well, and reports of lower GI bleeding w/ negative colonoscopy Plan: - f/u GI recs - no acute surgical intervention at this time - will continue to follow - further recs per Dr. House surgical attending PGY1
[2017-12-19 09:53] VITALS: BP 117/81; PULSE 87; TEMP 98.9; O2SAT 98
--- NOTE | 2017-12-19 12:00 | CP.PCM.DIS ---
Provider - Provider Date of Admission: 12/15/17 21:01 Attending physician: Rome Velasquez MD Time Spent in preparation of Discharge (in minutes): 30 Diagnosis - Discharge Diagnosis (1) Intractable abdominal pain Status: Acute (2) Cachexia Status: Acute (3) Gastritis Status: Acute (4) History of colon cancer Status: Acute Hospital Course - Lab Results Lab Results: Most Recent Lab Values WBC 6.0 K/uL (4.8-10.8) 12/17/17 05:00 RBC 3.99 Mil/uL (4.40-5.90) L 12/17/17 05:00 Hgb 13.1 g/dL (12.0-18.0) 12/17/17 05:00 Hct 37.7 % (35.0-51.0) 12/17/17 05:00 MCV 94.3 fl (80.0-94.0) H 12/17/17 05:00 MCH 32.9 pg (27.0-31.0) H 12/17/17 05:00 MCHC 34.8 g/dL (33.0-37.0) 12/17/17 05:00 RDW 14.2 % (11.5-14.5) 12/17/17 05:00 Plt Count 179 K/uL (130-400) 12/17/17 05:00 MPV 8.8 fl (7.2-11.7) 12/17/17 05:00 Neut % (Auto) 48.0 % (50.0-75.0) L 12/17/17 05:00 Lymph % (Auto) 37.3 % (20.0-40.0) 12/17/17 05:00 Bent % (Auto) 12.3 % (0.0-10.0) H 12/17/17 05:00 Eos % (Auto) 1.9 % (0.0-4.0) 12/17/17 05:00 Baso % (Auto) 0.5 % (0.0-2.0) 12/17/17 05:00 Neut # (Auto) 2.9 K/uL (1.8-7.0) 12/17/17 05:00 Lymph # (Auto) 2.2 K/uL (1.0-4.3) 12/17/17 05:00 Bent # (Auto) 0.7 K/uL (0.0-0.8) 12/17/17 05:00 Eos # (Auto) 0.1 K/uL (0.0-0.7) 12/17/17 05:00 Baso # (Auto) 0.0 K/uL (0.0-0.2) 12/17/17 05:00 PT 10.5 Seconds (9.8-13.1) 12/17/17 05:30 INR 1.0 (0.9-1.2) 12/17/17 05:30 APTT 25.7 Seconds (25.6-37.1) 12/17/17 05:30 Sodium 142 mmol/l (132-148) 12/17/17 05:00 Potassium 4.3 MMOL/L (3.6-5.0) 12/17/17 05:00 Chloride 102 mmol/L (98-107) 12/17/17 05:00 Carbon Dioxide 31 mmol/L (22-30) H 12/17/17 05:00 Anion Gap 13 (10-20) 12/17/17 05:00 BUN 12 mg/dl (9-20) 12/17/17 05:00 Creatinine 1.0 mg/dl (0.8-1.5) 12/17/17 05:00 Est GFR ( Amer) > 60 12/17/17 05:00 Est GFR (Non-Af Amer) > 60 12/17/17 05:00 Random Glucose 89 mg/dL (75-110) 12/17/17 05:00 Calcium 8.9 mg/dL (8.4-10.2) 12/17/17 05:00 Total Bilirubin 0.9 mg/dl (0.2-1.3) 12/17/17 05:00 AST 51 U/L (17-59) 12/17/17 05:00 ALT 56 U/L (21-72) 12/17/17 05:00 Alkaline Phosphatase 66 U/L (38-126) 12/17/17 05:00 Total Protein 6.3 G/DL (6.3-8.2) 12/17/17 05:00 Albumin 3.3 g/dL (3.5-5.0) L 12/17/17 05:00 Globulin 3.0 gm/dL (2.2-3.9) 12/17/17 05:00 Albumin/Globulin Ratio 1.1 (1.0-2.1) 12/17/17 05:00 Lipase 351 U/L (23-300) H 12/15/17 20:41 Alpha Fetoprotein 2.5 IU/mL (0.0-7.22) 12/16/17 10:57 Carcinoembryonic Ag 1.1 ng/mL (0-3.0) 12/16/17 10:57 - Hospital Course Hospital Course: This is a 42 y/o male admitted for intractable right lower abd pain for the past few weeks that has worsened in the past few days. Sx were accompanied by significant weight loss in the past few weeks. He has a hx of colon cancer and colectomy 5 years ago. He was placed on NPO and started on protonix. Dr Casas was called and colonoscopy was normal. CEA was also normal. Patient was maintained on protonix and given pain meds, He was discharged in stable condition and was given Rx and advised follow up in 1 week. Discharge Exam - Head Exam Head Exam: NORMAL INSPECTION - Eye Exam Eye Exam: Normal appearance - Respiratory Exam Respiratory Exam: NORMAL BREATHING PATTERN - Cardiovascular Exam Cardiovascular Exam: REGULAR RHYTHM - GI/Abdominal Exam GI & Abdominal Exam: Normal Bowel Sounds, Tenderness Additional comments: slight tenderness on the right lower quadrant and right upper quadrant. - Neurological Exam Neurological exam: CN II-XII Intact, Oriented x3 - Psychiatric Exam Psychiatric exam: Normal Mood Discharge Plan - Follow Up Plan Condition: FAIR Disposition: HOME/ ROUTINE Instructions: Acute Abdomen (Belly Pain), Adult (DC) Additional Instructions: Rx given to patient . Advised results of colonoscopy and advised to follow up in 1 week.
== END 2017-12-19 15:15 | disposition home or self-care (01) ==
LOC: H.ER 17:43 → INTOOBSV 21:01 → H.ERHOLD 21:01 → H.MEDSURG1 12-16 05:24
PROVIDERS: ADMIT Family Medicine; ATTEND Family Medicine
PROC: 0DJD8ZZ Inspection of Lower Intestinal Tract, Via Natural or Artificial Opening Endoscopic (ICD-10-PCS; principal; 2017-12-17 13:15)
DX: K64.8 Other hemorrhoids (principal); R10.31 Right lower quadrant pain; R64 Cachexia; K76.89 Other specified diseases of liver; F17.210 Nicotine dependence, cigarettes, uncomplicated; Z85.038 Personal history of other malignant neoplasm of large intestine; Z90.49 Acquired absence of other specified parts of digestive tract; K21.9 Gastro-esophageal reflux disease without esophagitis; K29.70 Gastritis, unspecified, without bleeding
CPT/HCPCS: 36415; 45378; 74177; 76705; 80053; 82105; 82378; 83690; 85025; 85610; 85730; 96374; 96375; 96376; 99282; C9113; G0378; J1170; J1650; J2001; J2250; J2270; J2405; J2704; J7040; J7120; Q9966; Q9967